=== PATIENT | female | born 1970 | race African-American/Black ===

== ENCOUNTER → 2017-03-05 | Day surgery (SDC) | payer OTHER ==
[~2017-03-05] VITALS: Ht 172.7 cm; Wt 77.1 kg
--- NOTE | 2017-03-08 16:49 | Operative Report ---
Operative/Inv Procedure Report Surgery Date: 03/05/17 Name of Procedure: Excision of deep subfascial 4.2 cm lipoma right anterior deltoid area Pre-Operative Diagnosis: Right upper extremity mass Post-Operative Diagnosis: Deep subfascial lipoma right upper extremity anterior deltoid area 4.2 cm diameter Estimated Blood Loss: scant Surgeon/Bingo Usher: MARTHA HAINES,WILLARD Zavaleta Anesthesia: local monitored anesthesi Operative/Procedure Note Note: Patient positioned supine after successful induction of MAC/local sedation patient's right upper extremity were prepped and draped in usual sterile fashion you could feel some of this mass we aimed an incision across it along the skin lines about 3 cm long the mass was oriented vertically. After injecting local anesthetic superficially we made the incision with a 15 blade just under the thin adipose tissue you could make out the capsule of this mass that was are subfascial we dissected around it as it tracked deeper into the deltoid muscle, rooted there. Circumferential back and forth dissection proceeded until it was completely isolated at its root and then removed in one piece cautery was used to check for hemostasis there was no significant bleeding care was taken to avoid itchy to surrounding neurovascular structures the area was irrigated and then closed back up in layers using 3-0 Vicryl sutures interrupted for the fascia followed by a few more subdermal followed by 4-0 Monocryl for the skin itself in subcuticular fashion. This was followed by Mastisol Steri-Strips Telfa and Tegaderm overall estimated blood loss was minimal lap and sponge cuts were correct wound expectancy was clean IV fluids crystalloid complications none patient tolerated procedure well was awakened and returned to recovery room in satisfactory condition. Thank you
== END ==
LOC: STS 04:54
DX: D21.11 Benign neoplasm of connective and other soft tissue of right upper limb, including shoulder (principal)
CPT/HCPCS: 88304; J0690; J2250